=== PATIENT | male | born 1945 | race Caucasian/White ===

== ENCOUNTER 2023-11-08 10:54 | Emergency (ER) | payer MEDICARE, BC, SELFPAY ==
[2023-11-08 11:03] VITALS: BP 126/81; PULSE 102; RESP 18; TEMP 36.7; O2SAT 95
--- NOTE | 2023-11-08 11:13 | ED.GENADULT ---
HPI - General Adult General Chief complaint: Back Injury/Pain Stated complaint: back pain Time Seen by Provider: 11/08/23 11:03 History of Present Illness HPI narrative: Patient reports low back pain x 2-3 days. Has tried icy hot, tylenol without relief. Hx back pain/ surgery per patient. Hx stroke, difficulty with word finding. helps provide history . Lives at [facility]. 78-year-old man presenting to the emergency depart with concern of back pain. Unclear exactly how long this has been going on per my interview. Interview is limited by cognitive difficulties from stroke and presumed dementia. Spouse attends as well but also with limited information. Resident of [facility]. It appears that this pain is been going on it least worse over the last couple of days. Acetaminophen taken without relief per spousal report. Need to review med list from facility. Does have history of chronic low back pain but it sounds to have improved markedly since a low back surgical procedure. This was remote and I am unsure what that was exactly. He does have on exam low lumbar well-healed surgical incision. They do report a history of a herniated disc once upon a time. He is not describing symptoms into his legs but noted him to be shaky with his legs like Yohan when he goes to stand. It sounds as though this is more related to pain than to weakness otherwise. They report no falls recently. Was assisted by nursing to transition out of wheelchair apparently. Urinalysis had initially been requested upon triage. Unable to urinate apparently. Bladder scan was also done prior to my seeing Mr. Osborn and noted to have only 20 mL or so remaining. Related Data Home Medications ?Medication ?Instructions ?Recorded ?Confirmed acetaminophen 500 mg capsule 500 mg PO TID 11/08/23 11/08/23 allopurinol 100 mg tablet 100 mg PO DAILY 11/08/23 11/08/23 amlodipine 5 mg tablet 5 mg PO DAILY 11/08/23 11/08/23 amoxicillin 500 mg tablet 500 mg PO ONCE PRN 11/08/23 11/08/23 apixaban 5 mg tablet (Eliquis) 5 mg PO BID 11/08/23 11/08/23 aspirin 81 mg capsule 81 mg PO DAILY 11/08/23 11/08/23 bacitracin 500 unit/gram topical 1 applic topical Q12H 11/08/23 11/08/23 packet camphor-menthol 0.2 %-3.5 % 1 applic topical TID 11/08/23 11/08/23 topical gel (Arctic Relief) chlorthalidone 25 mg tablet 25 mg PO DAILY 11/08/23 11/08/23 finasteride 5 mg tablet 5 mg PO DAILY 11/08/23 11/08/23 levetiracetam 1,000 mg tablet 1,000 mg PO DAILY 11/08/23 11/08/23 levetiracetam 500 mg tablet 500 mg PO HS 11/08/23 11/08/23 lisinopril 40 mg tablet 40 mg PO DAILY 11/08/23 11/08/23 metoprolol succinate 50 mg 50 mg PO DAILY 11/08/23 11/08/23 tablet,extended release 24 hr nystatin 100,000 unit/gram topical 1 applic topical BID 11/08/23 11/08/23 cream simvastatin 10 mg tablet 10 mg PO QPM 11/08/23 11/08/23 tamsulosin 0.4 mg capsule 0.4 mg PO DAILY 11/08/23 11/08/23 Allergies Allergy/AdvReac Type Severity Reaction Status Date / Time No Known Drug Allergies Allergy Verified 11/08/23 11:03 Review of Systems Status of ROS: Reports: 6 or more systems reviewed and unremarkable except as noted in History and below [facility] Social History Smoking Status: Unknown if ever smoked Exam Narrative: Exam Narrative: Pleasant. NAD. Flatter affect. Primarily answering yes and no to questions. Slightly affected speech apparently not new. Skin is warm and dry. Low midline surgical incision well healed in the lumbar spine. There is reproducible tenderness in in surrounding the left sacroiliac joint. Right is without tenderness. He has exacerbation of pain in his back to straight leg raise bilaterally I would say left greater than right but in both cases reaches to grab the knee as he complains of apparent back pain. Denies radicular symptoms into his legs in this process though. Skin is without back abdominal or lower extremity bruising or erythema or swelling. He is wearing Attends. Does not have pain to flexion or rotation of his thigh/hips. There is no pain to palpation over the trochanters femurs or knees. I do not appreciate any effusion. Heart is in an elevated rate. Breathing easily. Const: Vital Signs, click to edit/add: Vital Signs - 24 hr 11/08/23 11:03 Temperature 98.1 F Pulse Rate [Pulse Oximeter] 102 H Respiratory Rate 18 Blood Pressure [Ri ght Upper Arm] 126/81 Pulse Oximetry 95 Oxygen Delivery Me thod Room Air Documenting provider has reviewed patient's vital signs: yes Course Vital Signs Vital signs: Initial Vital Signs Temperature 98.1 F 11/08/23 11:03 Temperature Source Temporal Artery Scan 11/08/23 11:03 Pulse Rate 102 H 11/08/23 11:03 Respiratory Rate 18 11/08/23 11:03 Blood Pressure 126/81 11/08/23 11:03 Blood Pressure Mean 96 11/08/23 11:03 Blood Pressure Position Sitting 11/08/23 11:03 Pulse Oximetry 95 11/08/23 11:03 Oxygen Delivery Method Room Air 11/08/23 11:03 Vital Signs Temperature 98.1 F 11/08/23 11:03 Pulse Rate 102 H 11/08/23 11:03 Respiratory Rate 18 11/08/23 11:03 Blood Pressure 126/81 11/08/23 11:03 Pulse Oximetry 95 11/08/23 11:03 Oxygen Delivery Method Room Air 11/08/23 11:03 Temperature 98.1 F 11/08/23 11:03 Pulse Rate 102 H 11/08/23 11:03 Respiratory Rate 18 11/08/23 11:03 Blood Pressure 126/81 11/08/23 11:03 Pulse Oximetry 95 11/08/23 11:03 Oxygen Delivery Method Room Air 11/08/23 11:03 Medications Administered Medications: Discontinued Medications Generic Name Dose Route Start Last Admin Trade Name Freq PRN Reason Stop Dose Admin Hydrocodone Bitart/Acetaminophen 2 tab 11/08/23 11:24 11/08/23 11:32 Hydrocodone-Acetamin 5-325 Mg 1 Tab PO 11/08/23 11:25 2 tab ONCE ONE Administration Lidocaine 1 patch 11/08/23 11:24 11/08/23 11:31 Lidocaine 5% Patch TRANSDERMA 11/08/23 11:25 1 patch ONCE ONE Administration Protocol Medical Decision Making MDM Narrative Medical decision making narrative: History of chronic back pain as reported. Appears to have pain consistent with the left sacroiliac joint. There has been no new injury per report. I am not sure that new imaging would be beneficial right now. He does not clearly have radicular symptoms either. At this point would try to control the pain. Would like to know if he can tolerate 2 tabs of [place] along with placement of a lidocaine patch over the left sacroiliac joint. With treatment as above ultimately is improved. Is not excessively sedated. Unable to be mobilized more easily. See patient discharge plan for further discussion Medical Records Medical records reviewed: Yes I reviewed the patient's medical records Discharge Plan Discharge Clinical Impression: Sacroiliac joint pain, Low back pain Patient Disposition: Home w/ Parent or Adult Condition: Improved Additional Instructions: If this lidocaine patch is helpful, you can purchase more [id number]. See handout on sacroiliac joint pain. I do not expect you to be able to do all these exercises but these stretches might be beneficial. Particularly the right knee to chest while you are lying in bed. Also small quantity of [place] from [facility]. Remember that this can be sedating and constipating. On the days you need to take this medication, on the same day I would take 1-2 tabs of senna to keep bowels moving. Please follow-up with primary care provider regarding this pain and further care which may include physical therapy. Prescriptions: No Action amlodipine 5 mg tablet 5 mg PO DAILY allopurinol 100 mg tablet 100 mg PO DAILY acetaminophen 500 mg capsule 500 mg PO TID amoxicillin 500 mg tablet 500 mg PO ONCE PRN Rx Instructions: prior to dental procedures aspirin 81 mg capsule 81 mg PO DAILY chlorthalidone 25 mg tablet 25 mg PO DAILY Eliquis 5 mg tablet 5 mg PO BID Arctic Relief 0.2-3.5 % gel 1 applic topical TID Rx Instructions: rub in gently and completely bacitracin 500 unit/gram packet 1 applic topical Q12H Rx Instructions: to nailbed of left third digit levetiracetam 500 mg tablet 500 mg PO HS finasteride 5 mg tablet 5 mg PO DAILY levetiracetam 1,000 mg tablet 1,000 mg PO DAILY metoprolol succinate 50 mg tablet extended release 24 hr 50 mg PO DAILY simvastatin 10 mg tablet 10 mg PO QPM tamsulosin 0.4 mg capsule 0.4 mg PO DAILY nystatin 100,000 unit/gram cream 1 applic topical BID lisinopril 40 mg tablet 40 mg PO DAILY Follow Up/Referrals: Provider,Not a Local [Primary Care Provider] - Stand Alone Forms: [employer] Info Instructions
[2023-11-08] MEDS: LIDOCAINE 5% PATCH 1 PATCH TRANSDERMA (11:31)
[2023-11-08] MEDS: HYDROCODONE-ACETAMIN 5-325 MG 1 TAB 2 TAB PO (11:32)
--- OUTSIDE RECORDS SUMMARY | 2023-11-08 11:48 | XMS_ITS | Continuity of Care Document ---
Author Organization [facility] Address [address] [place] [address] Phone Care Team Providers Care Librarian Special Collections Name Role Phone Rickey Carreno Unavailable Unavailable Allergies, Adverse Reactions, Alerts Substance Reaction Status Criticality No Known Allergies Active No Inform ation Medications Medication Instructions Dosage Effective Dates (start - stop) Status Comments ALLOPURINOL (unknown strength) Not Available - Active AMOXICILLIN (unknown strength) Not Available - Active ASPIRIN (unknown strength) Not Available - Active DILTIAZEM 12HR ER (unknown strength) Not Available - Active FINASTERIDE (unknown strength) Not Available - Active KEPPRA (unknown strength) Not Available - Active LISINOPRIL (unknown strength) Not Available - Active SIMVASTATIN (unknown strength) Not Available - Active METOPROLOL SUCCINATE (unknown strength) Not Available - Active WARFARIN SODIUM (unknown strength) Not Available - Active Procedures Procedure Date Office/Outpatient Visit,Est, Mod 2018 Office/Outpatient Visit,Est, Mod 2018 Office/Outpatient Visit,New, Mod 2018 Advance Directives Directive Yes / No Effective Date File Name No Information Encounters Encounter Description Practice Location Reason(s) For Visit Diagnoses Date Provider Providers Copied on Encounter Office/Outpat ient Visit,Est, Mod [facility], [address], [place], [id number], [place] tel:[phone] [facility] [place] Other spondylosis , lumbar region Meek Lang. [facility], [address], [place], [id number], [place]. tel:[phone] Referring Provider: Neymar Michaels, [facility] [address] [facility], [place], [address]. tel:[phone] Office/Outpat ient Visit,Est, Mod [facility], [address], [facility] [place], [place], [id number], [place] tel:[phone] [facility] [place] Other spondylosis , lumbar region Meek Lang. [facility], [address], [place], [place], [id number], [place]. tel:[phone] Referring Provider: Neymar Michaels, [facility] [address], [place], [address]. tel:[phone] Office/Outpat ient Visit,New, Mod [facility], [address], [place], [place], [id number], [place] tel:[phone] [facility] [place] Other spondylosis , lumbar region Meek Lang. [facility], [address], [place], [place], [id number], [place]. tel:[phone] Referring Provider: Neymar Michaels, [facility] [address] [facility] [address], [place], [address]. tel:[phone] [facility], [address], [facility] [place], [place], [id number], [place] tel:[phone] [facility] Low back pain Eddie Anderson. [facility], [address], [facility] [place], [address], [place]. tel:[phone] Family History Family Member Type Diagnosis Age At Onset No Information Payers Payer name Insurance type Covered libertarian ID Sal king(s) Medicare MB [id number] [facility] Federal [id number] Social History Type Description Quantity Date Captured Comments Alcohol Use Details Unknown Caffeine Use Details Unknown Tobacco Use Status Smoking Status Former smoker Non-Smoking Tobacco Use Details : No Details Available : No Details Available Sex Male Vital Signs Date / Time: Height Weight BMI Pulse Rate Blood Pressure Temperature Respiratory Rate Body Surface Area Head Circumference Head Circ. Percentile Wt./Elan. Percentile BMI percentile Pulse Ox Inhaled Ox 2:59 PM 176.28 cm 131.088 kg (289.00 lbs) 42.1 8 kg/m eter (2) 70 /min 131/80 mm[Hg] Chief Complaint And Reason For Visit No Information Reason For Referral Reason For Referral No Information History Of Present Illness Encounter Date Complaint History Of Prese nt Illness No Information Functional Status Date Functional Assessmen t No Information Instructions Date Instruction Additional Infor mation No Information Assessments Type Assessment Date assessment Other spondylosis, lumbar region Patient Care Teams Name Effective Dates (start - stop) Status Members No Information
--- OUTSIDE RECORDS SUMMARY | 2023-11-08 11:48 | XMS_ITS | Clinical Summary ---
Author Organization [facility] Address [place], [place] [address] Care Team Providers Care Atomic Welder Name Role Phone Trevon Durán Jossue Unavailable [phone] Amador Deluca DPM Unavailable [phone] Fidel Melo MD Unavailable [phone] Steven Barnhart MD Unavailable Unavaila ble Allen Vergara MD Unavailable [phone] Juan Bañuelos MD Unavailable [phone] Joann Oconnell NP Primary Care Provider [phone] Allergies Active Allergy Reactions Criticality Noted Date Comments Homeopathic Products Runny Nose 03/29/2009 hayfever Medications Medication Sig Dispensed Refills Start Date End Date Status amoxicillin (AMOXIL) 500 mg capsule Take 2,000 mg by mouth one time if needed (prior to dental procedures). 01/10/2014 Active simvastatin (ZOCOR) 10 mg tabletIndications: Cerebrovascular accident (CVA), unspecified mechanism (HC) Take 1 Tablet (10 mg) by mouth at bedtime. 90 tablet. 3 03/13/2021 Active allopurinoL (ZYLOPRIM) 100 mg tabletIndications: Chronic gout without tophus, unspecified cause, unspecified site Take 1 Tablet (100 mg) by mouth once daily. 90 Tablet 3 03/13/2021 Active lisinopriL (PRINIVIL; ZESTRIL) 40 mg tabletIndications: Stage 3a chronic kidney disease (HC) Take 1 Tablet (40 mg) by mouth once daily. 90 Tablet 3 03/13/2021 Active finasteride (PROSCAR) 5 mg tabletIndications: Benign prostatic hyperplasia TAKE ONE TABLET BY MOUTH EVERY DAY IN THE MORNING 90 Tablet 3 07/29/2021 Active tamsulosin (FLOMAX) 0.4 mg capsuleIndications :Benign prostatic hyperplasia, unspecified whether lower urinary tract symptoms present Take 1 Capsule (0.4 mg) by mouth once daily after a meal. 90 Capsule 07/31/2021 Active acetaminophen (TYLENOL EXTRA STRGTH) 500 mg tablet Take 1,000 mg by mouth three times daily. Max acetaminophen dose: 4000mg in 24 hrs. Active aspirin (ECOTRIN) 81 mg enteric coated tablet Take 81 mg by mouth once daily with a meal. Active apixaban (ELIQUIS) 5 mg tablet Take 5 mg by mouth two times daily. Active levETIRAcetam (KEPPRA) 1,000 mg tablet Take 1,000 mg by mouth every morning. Active levETIRAcetam (KEPPRA) 500 mg tablet Take 500 mg by mouth at bedtime. Active amLODIPine (NORVASC) 5 mg tablet Take 5 mg by mouth once daily. Active chlorthalidone (HYGROTON) 25 mg tablet Take 25 mg by mouth once daily. Active nystatin (MYCOSTATIN) 100,000 unit/gram topical cream Apply to red skin topically two times a day. Apply until healed. Active metoprolol tartrate 75 mg tab Take by mouth. Give 1 tablet (75 mg) by mouth once daily Active menthol 4% (Biofreeze, menthol,) topical gel Apply to lower back topically three times a day for lower back pain. Active bacitracin ointment Apply to nailbed of left third digit topically two times daily Active Active Problems Problem Noted Date Diagnosed Date Dizziness 09/20/2023 Generalized weakness 09/20/2023 AASHISH (acute kidney injury) 09/20/2023 Pneumonia 07/19/2023 Generalized weakness 07/19/2023 AV heart block 02/14/2022 Sick sinus syndrome 02/14/2022 Mixed hyperlipidemia 02/13/2022 Seizure disorder 02/13/2022 BPH with obstruction/lower urinary tract symptom s 02/13/2022 Chronic atrial fibrillation 02/13/2022 Fall 02/12/2022 Renal cell carcinoma of left kidney 07/13/2021 Generalized weakness 12/26/2019 Hemorrhoids, internal 01/16/2018 Lumbar spondylosis 03/24/2017 Hip pain, left 09/13/2016 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 MOHS 04/2016 Hyperlipidemia 05/04/2016 Morbid obesity due to excess calories 09/24/2015 Chronic gout without tophus 03/25/2015 CKD (chronic kidney disease) stage 3, GFR 30-59 ml/min 05/22/2014 Overview: Baseline creatinine 1.25-1.5. BPH (benign prostatic hyperplasia) 2014 Seizure 11/23/2012 Overview: Saw neurology on 11/14/12. Paroxysmal atrial fibrillation 04/17/2009 Cerebrovascular accident (CV A) due to occlusion of left middle cerebral artery 04/17/2009 Global aphasia 04/17/2009 Hypertension 04/06/2006 Backache, unspecified 04/06/2006 History of colon polyps Resolved Problems Problem Noted Date Diagnosed Date Resolved Date Benign essential HTN 02/13/2022 024 Enteritis due to Norovirus 07/06/2021 0 02/12/2022 Influenza A 06/11/2017 09/14/2017 Muscle ache of extremity 06/10/201711/2017 Bacteremia 06/10/2017 02/12/2022 Other fatigue 06/10/2017 06/11/2017 Permanent atrial fibrillation 05/04/2016 02/12/2022 Seizures 05/04/2016 06/11/2017 Overview: 11/03/2012 last seizure Sepsis 05/03/2016 06/11/2017 Refused influenza vaccine 05/26/2015 Benign prostatic hyperplasia with urinary obstruction 09/25/2014 06/11/2017 Anticoagulation monitoring, INR range 2-3 08/02/2012 09/25/2021 Routine health maintenance 06/28/2012 0 06/11/2017 Gout, unspecified 03/31/2009 06/11/2017 Arthropathy associated with other bacterial diseases, pelvic region and thigh 04/06/20062016 Encounters Date Type Department Care Team Description 09/20/2023 12:04 PM CDT - 09/21/2023 1:15 PM CDT Emergency [facility] [address] [place] [address] Ofelia Bustamante, Antolin Tiwari MD Lapham, Renae Ann, Raul Morfin, Sana Perez NP Dizziness (Primary Dx); Generalized weakness; Renal cell carcinoma of left kidney (HC) Discharge Disposition: Home Health 09/20/2023 Travel from Last 3 Months Immunizations Name Administration Dates Next Due COVID-19 vaccine (i-Neumaticos-Bio NTech 30mcg/0.3mL) 12YO+ GAURANG-SUCROSE PF, MDV 07/06/2021(Deferred: - Readdress in AM) COVID-19 vaccine (i-Neumaticos-Bio NTech 30mcg/0.3mL) PF, MDV 03/16/2021,08/19/2020,07/29/2020 Influenza, High-dose Quadriv alent Inactivated 03/16/2021 Influenza, IIV4 2014 Influenza, Inactivated AIIV4 (Age 65+ Years) Preserv Free 03/27/2020 Pneumococcal Poly,23-Valent (Pneumovax) 2014 Pneumococcal conj 13-Valent (Prevnar 13) 05/26/2015 Td (Age >=7 Years) 05/25/2002 Tdap 06/03/2014 Family History Medical History Relation Name Comments Cancer Father skin Psychiatric illness Mother depressi on Diabetes Sister 4 Hypertension Sister 5 Hypertension Sister 6 Relation Name Status Comments Father (Age 82) 2003 Mother Alive Sister 1 Alive Sister 2 Alive Sister 3 Alive Sister 4 Sister 5 Sister 6 Social History Tobacco Use Types Packs/Day Years Used Date Smoking Tobacco: Former Cigarettes 0.5 5 0 06/06/1968 - 06/06/1973 Pipe Smokeless Tobacco: Never Tobacco Cessation:Counseling Given: Yes Comments:smoked less than 1ppd for 5 years including pipes and cigars Alcohol Use Standard Drinks/Week Comments No 0 (1 standard drink = 0.6 oz pur e alcohol) PHQ-2 Answer Date Recorded PHQ-2 TOTAL SCORE 0 09/12/2020 Social Connections Answer Date Recorded Frequency of Communication with Friends and Fami ly 0 07/20/2023 Financial Resource Strain Answer Date R ecorded Difficulty of Paying Living Expenses 3 09/21/2023 Difficulty of Paying Living Expenses Not on file 09/21/2023 Food Insecurity Answer Date Recorded Worried About Running Out of Food in the Last Ye ar 1 07/20/2023 Transportation Needs Answer Date Record ed Lack of Transportation (Medical) 1 07/20/2023 Housing Stability Answer Date Recorded Unable to Pay for Housing in the Last Year 1 07/20/2023 Sex and Gender Information Value Date Recorded Sex Assigned at Not on file Gender Identity Not on file Sexual Orientation Not on file Obstetrics History Last Filed Vital Signs Vital Sign Reading Time Taken Comments Blood Pressure 161/74 09/21/2023 9:01 AM CDT Pulse 72 09/21/2023 9:01 AM CDT Temperature 36.5 ??C (97.7 ??F) 09/21/2023 9:23 AM CD T Respiratory Rate 16 09/21/2023 9:01 AM CDT Oxygen Saturation 96% 09/21/2023 9:01 AM CDT Inhaled Oxygen Concentration - - Weight 123.4 kg (272 lb) 09/21/2023 4:36 AM CDT Height 180.3 cm (5' 11) 09/20/2023 12:08 PM CDT Body Mass Index 37.94 09/20/2023 12:08 PM CDT Plan of Treatment Health Maintenance Due Date Last Done Comments Zoster (shingles) series for age 50+ (1 of 2) 1966 Depression screening for age 12+ 09/12/2021 09/12/2020, 03/27/2020, 03/27/2020, Additional history exists Medicare Wellness for age 65+ 09/13/2021, 03/27/2020, 03/26/2019, Additional history exists BMI (ht and wt on same day) for age 18+ 07/13/2022 07/13/2021, 03/27/2020, 02/20/2020, Additional history exists COVID-19 vaccine series ( season) 2023 03/16/2021, 08/19/2020, 07/29/2020 Influenza for age 65+ 02/05/2024 03/16/2021 , 03/27/2020, 2014 Tetanus booster 06/03/2024 06/03/2014, 05/25/2002 Tdap Completed 06/03/2014 Pneumococcal series for age 65+ Completed 5, 2014 Hepatitis C screening for ag e 18-79 Completed 03/26/2019 Goals Goal Patient Goal Type Associated Problems Recent Progress Patient-Stated? Author BLOOD PRESSURE-MA INTAINS BP LESS THAN 130/80 Blood Pressure No Latanya Snell, DO Procedures Procedure Name Priority Date/Time Associated Diagnosis Comments MAGNESIUM Early AM 09/21/2023 5:40 AM CDT HEMOGLOBIN Early AM 09/21/2023 5:40 AM CDT SODIUM Early AM 09/21/2023 5:40 AM CDT POTASSIUM Early AM 09/21/2023 5:40 AM CDT CREATININE Early AM 09/21/2023 5:40 AM CDT INFLUENZA A/B PCR Today 09/20/2023 5:5 7 PM CDT MAGNESIUM ALON 09/20/2023 2:39 PM CDT TROPONIN T (HS) ONE TIME Timed 09/20/2023 2:39 PM CDT UA W/ SEDIMENT EXAM REFLEXED PER CRITERIA STAT 09/20/2023 2:[address] ANGIO HEAD AND NECK CAROTID STAT 09/20/2023 1:[address] HEAD BRAIN WO STAT 09/20/2023 1:29 PM CDT XR CHEST 1 VIEW PORTABLE STAT 09/20/2023 12:34 PM CDT BLOOD CULTURE STAT 09/20/2023 12:28 PM CDT CBC WITH AUTO DIFFERENTIAL STAT 09/20/2023 12:23 PM CDT PROCALCITONIN STAT 09/20/2023 12:23 PM CDT LACTATE VENOUS Today 09/20/2023 12:23 PM CDT BLOOD CULTURE STAT 09/20/2023 12:23 PM CDT TSH STAT 09/20/2023 12:23 PM CDT TROPONIN T (HS) ACUTE W/2HR REFLEX STAT 09/20/2023 12:23 PM CDT HEPATIC FUNCTION PANEL STAT 12:23 PM CDT BASIC METABOLIC PANEL STAT 09/20/2023 12:23 PM CDT PROTIME-INR STAT 09/20/2023 12:23 PM CDT CBC WITH AUTO DIFFERENTIAL STAT 09/20/2023 12:23 PM CDT EKG 12 LEAD STAT 09/20/2023 12:20 PM CDT ANTI HCV Routine 03/26/2019 4:11 PM CDT Need for hepatitis C screening test from Last 3 Months or Most Recently Relevant to Health Maintenance Results * HEMOGLOBIN (09/21/2023 5:40 AM CDT) HEMOGLOBIN 13.7 13.5 - 17.5 g/dL 09/21/2023 6:30 AM CDT [facility] MCV 93 80 - 100 fL 09/21/2023 6:30 AM CDT [facility] Blood BLOOD SPECIMEN / Unknown Venipuncture / Unknown 09/21/2023 5:40 AM CDT 09/21/2023 6:16 AM CDT Padmini Buck NP HEMATOLOGY [facility] [address] [place] [address] * SODIUM (09/21/2023 5:40 AM CDT) [facility] SODIUM 139 136 - 145 mmol/L 09/21/2023 6:40 AM CDT [facility] Blood BLOOD SPECIMEN / Unknown Venipuncture / Unknown 09/21/2023 5:40 AM CDT 09/21/2023 6:16 AM CDT Padmini Buck NP CHEMISTRY [facility] [address] [place] [address] * POTASSIUM (09/21/2023 5:40 AM CDT) [facility] POTASSIUM 4.3 3.5 - 5.1 mmol/L 09/21/2023 6:40 AM CDT [facility] Blood BLOOD SPECIMEN / Unknown Venipuncture / Unknown 09/21/2023 5:40 AM CDT 09/21/2023 6:16 AM CDT Padmini Buck NP CHEMISTRY Performing Organization Address City/[facility]/ZIP Co de Phone Number [facility] [address] [place] [address] * (ABNORMAL) CREATININE (09/21/2023 5:40 AM CDT) [facility] eGFR 63(L) >90 mL/min/1.7 3m2 09/21/2023 6:40 AM CDT [facility] Comment:As of 2021, eG FR is calculated by the CKD-EPI creatinine equation without race adjustment. ??eGFR can be influenced by muscle mass, exercise, and diet. ??The reported eGFR is an estimation only and is only applicable if the renal function is stable. CREATININE 1.20 0.70 - 1.20 mg/dL 09/21/2023 6:40 AM CDT [facility] Blood BLOOD SPECIMEN / Unknown Venipuncture / Unknown 09/21/2023 5:40 AM CDT 09/21/2023 6:16 AM CDT Padmini Buck NP CHEMISTRY Performing Organization Address [facility]/ZIP Co de Phone Number [facility] [address] [place] [address] * MAGNESIUM (09/21/2023 5:40 AM CDT) Only the most recent of2 resultswithin the time period is included. [facility] MAGNESIUM 2.1 1.6 - 2.4 mg/dL 09/21/2023 6:40 AM CDT [facility] Blood BLOOD SPECIMEN / Unknown Venipuncture / Unknown 09/21/2023 5:40 AM CDT 09/21/2023 6:16 AM CDT Padmini Buck NP CHEMISTRY Performing Organization Address [facility] Co de Phone Number [facility] [address] [place] [address] * INFLUENZA A/B PCR (09/20/2023 5:57 PM CDT) [facility] INFLUENZA A PCR NOT Detected 09/20/2023 6:25 PM CDT [facility] INFLUENZA B PCR NOT Detected 09/20/2023 6:25 PM CDT [facility] Other SPECIMEN FROM NASOPHARYNGEAL STRUCTURE / Unknown Non-Blood / Unknown 09/20/2023 5:57 PM CDT 09/20/2023 6:00 PM CDT Padmini Buck NP MICROBIOLOGY Performing Organization Address [facility]/ZIP Co de Phone Number [facility] [address] [place] [address] * (ABNORMAL) TROPONIN T (HS) ONE TIME (09/20/2023 2:39 PM CDT) [facility] TROPONIN T HS 32(H) 6-15 ng/L ng/L 09/20/2023 3:17 PM T [facility] Blood BLOOD SPECIMEN / Unknown Venipuncture / Unknown 09/20/2023 2:39 PM CDT 09/20/2023 2:48 PM CDT Ofelia Bustamante SERVICE CLEANER CHEMISTRY [facility] [address] [place] [address] * Urinalysis w Reflex Microscopic if Positive (09/20/2023 2:15 PM CDT) COLOR Yellow Yellow Color 09/20/2023 2:22 PM [facility] CLARITY Clear Clear Clarity 09/20/2023 2:22 PM [facility] SPECIFIC GRAVITY,URINE 1.010 1.010, 1.015, 1.020, 1.025 09/20/2023 2:22 PM [facility] PH,URINE 5.5 6.0, 7.0, 8.0, 5.5, 6.5, 7.5, 8.5 09/20/2023 2:22 PM [facility] UROBILINOGEN, QUALITATIVE Normal Normal EU/dl 09/20/2023 2:22 PM [facility] PROTEIN, URINE Negative Negative mg/dL 09/20/2023 2:22 PM [facility] GLUCOSE, URINE Negative Negative mg/dL 09/20/2023 2:22 PM [facility] KETONES,URINE Negative Negative mg/dL 09/20/2023 2:22 PM [facility] BILIRUBIN,URI NE Negative Negative 09/20/2023 2:22 PM [facility] OCCULT BLOOD,URINE Negative Negative 09/20/2023 2:22 PM [facility] NITRITE Negative Negative 09/20/2023 2:22 PM [facility] LEUKOCYTE ESTERASE Negative Negative 09/20/2023 2:22 PM [facility] Urine URINE SPECIMEN / Unknown Non-Blood / Unknown 09/20/2023 2:15 PM CDT 09/20/2023 2:18 PM CDT Ofelia Bustamante NP URINE [facility] [address] [place] [address] * CT ANGIO HEAD AND NECK CAROTID (09/20/2023 1:31 PM CDT) Anatomical Region Laterality Modality BRAIN, NECK Computed Tomogra phy 09/20/2023 1:35 PM CDT Addenda Addendum by Maggie Ernandez MD on 09/20/2023 1:37 PM CDT For Patients: ??As a result of the Cures Act, medical imaging exams and procedure reports are released immediately into your electronic medical record. ??You may view this report before your referring provider. ?? If you have questions, please contact your health care provider. CT ANGIOGRAM HEAD DATE: 09/20/2023 CLINICAL HISTORY: Patient with dizziness. TECHNIQUE: Standard helical CT image acquisition through the intracranial circulation following intravenous administration of contrast material with bolus tracking. 2D and 3D MIP images for post-processing were performed and interpreted on an independent workstation and 3D images were permanently archived. COMPARISON: CT same day. FINDINGS: There is no proximal intracranial large vessel occlusion. There is no intracranial aneurysm. The right internal carotid artery is normal. The right middle cerebral artery and its branches are normal. The right anterior cerebral artery and its branches are normal. The left internal carotid artery is normal. The left middle cerebral artery and its branches are normal. The left anterior cerebral artery and its branches are normal. The anterior communicating artery is well visualized and appears normal. The right vertebral artery and PICA are normal. The left vertebral artery and PICA are normal. The right vertebral artery is dominant. The basilar artery is patent and appears normal. The right posterior cerebral artery is normal. The left posterior cerebral artery is normal. The visualized venous structures are patent. IMPRESSION: Patent proximal intracranial vasculature. Please note that all CT scans at this facility use dose modulation, iterative reconstruction, and/or weight-based dosing when appropriate to reduce radiation dose to as low as reasonably achievable. Dictated by: Maggie Ernandez MD @ 09/20/2023 13:37:47 (Electronically Signed) Impressions 09/20/2023 1:35 PM CDT Normal CTA of the neck. Please note that all CT scans at this facility use dose modulation, iterative reconstruction, and/or weight-based dosing when appropriate to reduce radiation dose to as low as reasonably achievable. Dictated by: Maggie Ernandez MD @ 09/20/2023 13:35:56 (Electronically Signed) Narrative 09/20/2023 1:35 PM CDT For Patients: ??As a result of the Cures Act, medical imaging exams and procedure reports are released immediately into your electronic medical record. ??You may view this report before your referring provider. ??If you have questions, please contact your health care provider. CT ANGIOGRAM NECK DATE: 09/20/2023 CLINICAL HISTORY: Patient with dizziness. TECHNIQUE: Standard helical CT image acquisition of the neck up to the skull base after bolus intravenous contrast enhancement. 2D and 3D MIP images for post-processing were performed and interpreted on an independent workstation and 3D images were permanently archived. COMPARISON: CT same day. FINDINGS: The origins of the great vessels from the aortic arch are patent. The origin of the right vertebral artery is patent. The origin of the left vertebral artery is patent. The common carotid arteries are patent. There is no stenosis at the origin of the right internal carotid artery. There is no stenosis at the origin of the left internal carotid artery. The rest of the cervical segments of the internal carotid arteries are patent up to the skull base. The right vertebral artery is dominant. The cervical segments of the vertebral arteries are patent up to the skull base. The visualized lung apices are unremarkable. The thyroid gland is unremarkable. The soft tissues of the neck are unremarkable. There are degenerative changes in the cervical spine. Procedure Note Maggie Ernandez MD - 09/20/2023 For Patients: As a result of the Cures Act, medical imagingexams and procedure reports are released immediately into your electronicmedical record. You may view this report before your referring provider.If you have questions, please contact your health care provider. CT ANGIOGRAM NECK DATE: 09/20/2023 CLINICAL HISTORY: Patient with dizziness. TECHNIQUE: Standard helical CT image acquisition of the neck up to theskull base after bolus intravenous contrast enhancement. 2D and 3D MIPimages for post- processing were performed and interpreted on anindependent workstation and 3D images were permanently archived. COMPARISON: CT same day. FINDINGS: The origins of the great vessels from the aortic arch are patent. Theorigin of the right vertebral artery is patent. The origin of the leftvertebral artery is patent. The common carotid arteries are patent. There is no stenosis at the origin of the right internal carotid artery. There is no stenosis at the origin of the left internal carotid artery. The rest of the cervical segments of the internal carotid arteries arepatent up to the skull base. The right vertebral artery is dominant. The cervical segments of thevertebral arteries are patent up to the skull base. The visualized lung apices are unremarkable. The thyroid gland is unremarkable. The soft tissues of the neck are unremarkable. There are degenerative changes in the cervical spine. IMPRESSION: Normal CTA of the neck. Please note that all CT scans at this facility use dose modulation,iterative reconstruction, and/or weight-based dosing when appropriate toreduce radiation dose to as low as reasonably achievable. Dictated by: Maggie Ernandez MD @ 09/20/2023 13:35:56 (Electronically Signed) Ofelia Bustamante NP CT * CT HEAD BRAIN WO (09/20/2023 1:29 PM CDT) Anatomical Region Laterality Modality HEAD, BRAIN Computed Tomogra phy 09/20/2023 1:39 PM CDT Impressions 09/20/2023 1:39 PM CDT 1. No acute intracranial abnormality. 2. Redemonstration of large area of left middle cerebral artery territory encephalomalacia. 3. Moderate mucosal thickening with mixed density debris in the right maxillary sinus with mild thickening of the surrounding bony felix. Findings may represent chronic sinusitis. Please note that all CT scans at this facility use dose modulation, iterative reconstruction, and/or weight-based dosing when appropriate to reduce radiation dose to as low as reasonably achievable. Dictated by Allen Patino MD @ 09/20/2023 1:39:17 PM (Electronically Signed) Narrative 09/20/2023 1:39 PM CDT For Patients: ??As a result of the Cures Act, medical imaging exams and procedure reports are released immediately into your electronic medical record. ??You may view this report before your referring provider. ??If you have questions, please contact your health care provider. INDICATION: Dizziness, persistent/recurrent, cardiac or vascular cause suspected TECHNIQUE: CT of the head was performed without IV contrast. COMPARISON: 07/19/2023, 02/28/2023. FINDINGS: Parenchyma: No acute hemorrhage, infarction, or mass. Mild scattered periventricular white matter hypoattenuation is nonspecific and is favored to represent chronic small vessel ischemic disease. ?? Redemonstration of large area of left middle cerebral artery territory encephalomalacia. Ventricles and extra-axial spaces: Moderate atrophy and prominence of the ventricles. Visualized paranasal sinuses: Moderate mucosal thickening with mixed density debris in the right maxillary sinus with mild thickening of the surrounding bony felix. Mastoid air cells: Clear. ?? Bones: No focal abnormality. ?? Additional comment: None. Procedure Note Franco Patino MD - 09/20/2023 For Patients: As a result of the Cures Act, medical imagingexams and procedure reports are released immediately into your electronicmedical record. You may view this report before your referring provider.If you have questions, please contact your health care provider. INDICATION: Dizziness, persistent/recurrent, cardiac or vascular cause suspected TECHNIQUE: CT of the head was performed without IV contrast. COMPARISON: 07/19/2023, 02/28/2023. FINDINGS: Parenchyma: No acute hemorrhage, infarction, or mass. Mild scattered periventricular white matter hypoattenuation is nonspecificand is favored to represent chronic small vessel ischemic disease. Redemonstration of large area of left middle cerebral artery territoryencephalomalacia. Ventricles and extra-axial spaces: Moderate atrophy and prominence of theventricles. Visualized paranasal sinuses: Moderate mucosal thickening with mixeddensity debris in the right maxillary sinus with mild thickening of thesurrounding bony felix. Mastoid air cells: Clear. Bones: No focal abnormality. Additional comment: None. IMPRESSION: 1. No acute intracranial abnormality. 2. Redemonstration of large area of left middle cerebral artery territoryencephalomalacia. 3. Moderate mucosal thickening with mixed density debris in the rightmaxillary sinus with mild thickening of the surrounding bony felix.Findings may represent chronic sinusitis. Please note that all CT scans at this facility use dose modulation,iterative reconstruction, and/or weight-based dosing when appropriate toreduce radiation dose to as low as reasonably achievable. Dictated by Allen Patino MD @ 09/20/2023 1:39:17 PM (Electronically Signed) Ofelia Marinelli Robby SERVICE CLEANER CT * XR CHEST 1 VIEW PORTABLE (09/20/2023 12:34 PM CDT) Anatomical Region Laterality Modality HEART, THORAX, CHEST Digital Rad iography 09/20/2023 12:3 7 PM CDT Impressions 09/20/2023 12:37 PM CDT No acute findings and no significant changes from the prior exam. Dictated by Channing Garcia MD @ 09/20/2023 12:37:27 PM (Electronically Signed) Narrative 09/20/2023 12:37 PM CDT For Patients: ??As a result of the Cures Act, medical imaging exams and procedure reports are released immediately into your electronic medical record. ??You may view this report before your referring provider. ??If you have questions, please contact your health care provider. INDICATION: Shortness of breath. TECHNIQUE: Chest 2 views. COMPARISON: July 19, 2023. FINDINGS: Cardiovascular and mediastinum: ??Heart size and vasculature are normal in caliber and appearance. ?? Lungs and pleural spaces: ??Lungs are clear. ??No sign of infiltrate or mass. ??No sign of pleural effusion. ??No pneumothorax. ?? Bones and soft tissues: ??No significant findings. Procedure Note Channing Garcia MD - 09/20/2023 For Patients: As a result of the Cures Act, medical imagingexams and procedure reports are released immediately into your electronicmedical record. You may view this report before your referring provider.If you have questions, please contact your health care provider. INDICATION: Shortness of breath. TECHNIQUE: Chest 2 views. COMPARISON: July 19, 2023. FINDINGS: Cardiovascular and mediastinum: Heart size and vasculature are normal incaliber and appearance. Lungs and pleural spaces: Lungs are clear. No sign of infiltrate ormass. No sign of pleural effusion. No pneumothorax. Bones and soft tissues: No significant findings. IMPRESSION: No acute findings and no significant changes from the prior exam. Dictated by Channing Garcia MD @ 09/20/2023 12:37:27 PM (Electronically Signed) Ofelia Bustamante NP GENERAL RISSA GING * BLOOD CULTURES (09/20/2023 12:28 PM CDT) Only the most recent of2 resultswithin the time period is included. CULTURE No Growth. 09/25/2023 12:54 PM CDT [facility] Blood BLOOD SPECIMEN / Unknown Butterfly / Unknown 09/20/2023 12:28 PM CDT 09/20/2023 12:32 PM CDT Ofelia Bustamante SERVICE CLEANER MICROBIOLOG Y [facility] [address] [place] [address] * (ABNORMAL) TROPONIN T (HS) ACUTE W/2HR REFLEX (09/20/2023 12:23 PM CDT) TROPONIN T HS 35(H) 6-15 ng/L ng/L 09/20/2023 1:09 PM CDT [facility] Blood BLOOD SPECIMEN / Unknown Butterfly / Unknown 09/20/2023 12:23 PM CDT 09/20/2023 12:31 PM CDT Narrative [facility] - 09/20/2023 1:09 PM CDT hs-cTnT (Elecsys Troponin T Gen 5) concentration (s) above the sex-specific 99th percentile (16 ng/L or greater for males or 11 ng/L or greater for females) are indicative of myocardial injury. If initial hs-cTnT <=100 ng/L at presentation, a 0h/2h ABSOLUTE (ng/L) delta change (rising or falling) of >=10 ng/L suggests a significant change, whereas a 0h/2h delta change <=3 ng/L suggests no significant change. If initial hs-cTnT >100 ng/L at presentation, a 0h/2h/ RELATIVE (percent, %) delta change of 20% is suggested to distinguish patients with acute vs. chronic myocardial injury. There are multiple etiologies that can cause hs-cTnT increases above the 99th percentile (myocardial injury) other than acute myocardial infarction. Clinical context and careful clinical evaluation are critical for diagnosis and risk-stratification. The diagnosis of acute myocardial infarction requires a rising and/or falling pattern in hs-cTnT concentrations with at least one value above the sex-specific 99th percentile PLUS at least one of the following clinical criteria: ischemic symptoms, new or presumed new significant ST-T wave changes or new LBBB, development of pathological Q waves, imaging evidence of new loss of viable myocardium or new regional wall motion abnormality, or identification of intracoronary atherothrombosis or an acute angiographic culprit on coronary angiography. In appropriate low-risk patients with a non-ischemic electrocardiogram without active chest pain with a symptom onset >3-hours without recurrence, a single initial hs-cTnT<6 ng/L identifies patient with a very low risk in emergency department patient population. Ofelia Bustamante NP CHEMISTRY [facility] [address] [place] [address] * CBC WITH AUTO DIFFERENTIAL (09/20/2023 12:23 PM CDT) WHITE BLOOD COUNT 6.5 4.5 - 11.0 thou/cu mm 09/20/2023 12:38 PM CDT [facility] RED BLOOD COUNT 4.79 4.30 - 5.90 mil/cu mm 09/20/2023 12:38 PM CDT [facility] HEMOGLOBIN 15.1 13.5 - 17.5 g/dL 09/20/2023 12:38 PM CDT [facility] HEMATOCRIT 44.8 37.0 - 53.0 % 09/20/2023 12:38 PM [facility] MCV 94 80 - 100 fL 09/20/2023 12:38 PM [facility] MCH 31.5 26.0 - 34.0 pg 09/20/2023 12:38 PM [facility] MCHC 33.7 32.0 - 36.0 g/dL 09/20/2023 12:38 PM [facility] RDW 13.7 11.5 - 15.5 % 09/20/2023 12:38 PM [facility] PLATELET COUNT 235 140 - 440 thou/cu mm 09/20/2023 12:38 PM [facility] MPV 10.0 6.5 - 11.0 fL 09/20/2023 12:38 PM [facility] % NEUT 74.4 % 09/20/2023 12:38 PM [facility] % LYMPH 16.5 % 09/20/2023 12:38 PM [facility] % MONO 7.2 % 09/20/2023 12:38 PM [facility] % EOS 1.7 % 09/20/2023 12:38 PM [facility] % BASO 0.2 % 09/20/2023 12:38 PM [facility] ABSOLUTE NEUTROPHILS 4.8 1.7 - 7.0 thou/cu mm 09/20/2023 12:38 PM [facility] ABSOLUTE LYMPHOCYTES 1.1 0.9 - 2.9 thou/cu mm 09/20/2023 12:38 PM [facility] ABSOLUTE MONOCYTES 0.5 <0.9 thou/cu mm 09/20/2023 12:38 PM [facility] ABSOLUTE EOSINOPHILS 0.1 <0.5 thou/cu mm 09/20/2023 12:38 PM [facility] ABSOLUTE BASOPHILS 0.0 <0.3 thou/cu mm 09/20/2023 12:38 PM [facility] Blood BLOOD SPECIMEN / Unknown Butterfly / Unknown 09/20/2023 12:23 PM CDT 09/20/2023 12:32 PM CDT Ofelia Bustamante NP HEMATOLOGY Performing Organization Address [facility]/ZIP Co de Phone Number [facility] [address] [place] [address] * LACTATE VENOUS (09/20/2023 12:23 PM CDT) LACTATE,VENOUS 2.0 0.5 - 2.0 mmol/L 09/20/2023 12:56 PM CDT [facility] Blood BLOOD SPECIMEN / Unknown Butterfly / Unknown 09/20/2023 12:23 PM CDT 09/20/2023 12:32 PM CDT Ofelia Bustamante NP CHEMISTRY Performing Organization Address [facility]/ZIP Co de Phone Number [facility] [address] [place] [address] * PROCALCITONIN (09/20/2023 12:23 PM CDT) [facility] PROCALCITONIN 0.07 ng/ml 09/20/2023 1:10 PM CDT [facility] Blood BLOOD SPECIMEN / Unknown Butterfly / Unknown 09/20/2023 12:23 PM CDT 09/20/2023 12:31 PM CDT Narrative [facility] - 09/20/2023 1:10 PM CDT Procalcitonin for initial assessment of Lower Respiratory Tract Infection: Results Interpretation <0.10 ng/mL Antibiotic therapy strongly discoraged. ??Indicates absent of bacterial infection. * 0.10 - 0.25 ng/mL Antibiotic therapy discouraged. ??Bacterial infection unlikely. * 0.26 - 0.50 ng/mL Antibiotic therapy encouraged. ??Bacterial infection possible. >0.50 ng/mL Antibiotic therapy strongly encouraged. ??Suggestive of presence of bacterial infection. *Antibiotic therapy should be considered regardless of PCT result if the patient is clinically unstable, is at high risk for adverse outcome, has strong evidence of bacterial pathogen, or the clinical context indicates antibiotic therapy is warranted. ??If antibiotics are withheld, reassess if symptoms persist/worsen and/or repeat PCT measurement within 6-24 hours. ? In order to assess treatment success and to support a decision to discontinue antibiotic therapy, follow up samples should be tested once every 1-2 days, based upon physician discretion taking into account patient's evolution and progress. Procalcitonin for initial assessment of severe sepsis risk: Results Interpretation <0.5 ng/ml A PCT level below 0.5 ng/ml on the first day of ICU admission is associated with a low risk for progression to severe sepsis and/or septic shock. > 2.0 ng/mL A PCT level above 2.0 ng/mL on the first day of ICU admission is associated with a high risk for progression to severe sepsis and/or septic shock. Note: Concentrations < 0.5 ng/mL do not exclude an infection, on account of localized infections (without systemic signs) which can be associated with such low concentrations, or a systemic infection in its initial stages(< 6 hours). Furthermore, increased procalcitonin can occur without infection. PCT concentrations between 0.5 and 2.0 ng/mL should be interpreted taking into account the patient's history. It is recommended to retest PCT within 6-24 hours if any concentrations < 2 ng/mL are obtained. Ofelia Bustamante SERVICE CLEANER SEND OUTS [facility] [address] [place] [address] * TSH (09/20/2023 12:23 PM CDT) TSH 1.43 0.27 - 4.20 uIU/mL 09/20/2023 1:09 PM CDT [facility] Blood BLOOD SPECIMEN / Unknown Butterfly / Unknown 09/20/2023 12:23 PM CDT 09/20/2023 12:31 PM CDT [facility] - 09/20/2023 1:09 PM CDT In Adults, TSH values between 5.00 and 10.00 uIU/ml do not necessarily indicate the presence of Hypothyroidism. Correlation with clinical findings such as presence of goiter and/or Thyroperoxidase (TPO) Antibody may be helpful. For more information please refer to ISREAL 2004; 291: 228-238. Ofelia Bustamante NP CHEMISTRY Performing Organization Address [facility] de Phone Number [facility] [address] [place] [address] * (ABNORMAL) Protime - INR (09/20/2023 12:23 PM CDT) [facility] Signature INR 1.5(H) <1.3 09/20/2023 12:40 PM CDT [facility] PROTIME 17.1(H) 10.3 - 12.3 sec 09/20/2023 12:40 PM CDT [facility] Blood BLOOD SPECIMEN / Unknown Butterfly / Unknown 09/20/2023 12:23 PM CDT 09/20/2023 12:31 PM CDT [facility] - 09/20/2023 12:40 PM CDT ?Therapeutic Range 2.0-3.0 for most anticoagulated patients 2.5-3.5 or 4.0 for high risk patients The INR is only used for patients on stable oral anticoagulant therapy. It makes no significant contribution to the diagnosis or treatment of patients whose Protime is prolonged for other reasons. INR results are increased when heparin levels exceed 1.0 U/mL, which corresponds to an aPTT >125 seconds if the patient is on UFH. Ofelia Bustamante NP HEMATOLOGY Performing Organization Address [facility] Co de Phone Number [facility] [address] [place] [address] * Hepatic Function Panel (09/20/2023 12:23 PM CDT) ALBUMIN 4.2 4.0 - 4.9 g/dL 09/20/2023 1:09 PM CDT [facility] PROTEIN,TOTAL 6.8 6.0 - 8.0 g/dL 09/20/2023 1:09 PM CDT [facility] BILIRUBIN,TOTAL 0.5 0.0 - 1.2 mg/dL 09/20/2023 1:09 PM T [facility] BILIRUBIN,DIRECT <0.2 0.0 - 0.3 mg/dL 09/20/2023 1:09 PM T [facility] BILIRUBIN,INDIRE CT 09/20/2023 1:09 PM T [facility] Comment:Unable to calculate, Direct Bili <0.2 ALK PHOSPHATASE 75 40 - 129 IU/L 09/20/2023 1:09 PM T [facility] ALT (SGPT) 21 10 - 50 IU/L 09/20/2023 1:09 PM [facility] AST (SGOT) 26 10 - 50 IU/L 09/20/2023 1:09 PM [facility] Blood BLOOD SPECIMEN / Unknown Butterfly / Unknown 09/20/2023 12:23 PM CDT 09/20/2023 12:31 PM CDT Ofelia Bustamante NP CHEMISTRY [facility] [address] [place] [address] * (ABNORMAL) Basic Metabolic Panel (09/20/2023 12:23 PM CDT) SODIUM 141 136 - 145 mmol/L 09/20/2023 1:09 PM T [facility] POTASSIUM 4.5 3.5 - 5.1 mmol/L 09/20/2023 1:09 PM [facility] CHLORIDE 104 98 - 107 mmol/L 09/20/2023 1:09 PM [facility] CO2,TOTAL 26 22 - 29 mmol/L 09/20/2023 1:09 PM [facility] ANION GAP 11 5 - 18 09/20/2023 1:09 PM [facility] GLUCOSE 120(H) 70 - 99 mg/dL 09/20/2023 1:09 PM [facility] CALCIUM 9.3 8.8 - 10.2 mg/dL 09/20/2023 1:09 PM CDT [facility] BUN 28(H) 8 - 23 mg/dL 09/20/2023 1:09 PM CDT [facility] CREATININE 1.45(H) 0.70 - 1.20 mg/dL 09/20/2023 1:09 PM CDT [facility] BUN/CREAT RATIO 19 10 - 20 1:09 PM T [facility] eGFR 50(L) >90 mL/min/1.7 3m2 09/20/2023 1:09 PM CDT [facility] Comment:As of 2021, eG FR is calculated by the CKD-EPI creatinine equation without race adjustment. ??eGFR can be influenced by muscle mass, exercise, and diet. ??The reported eGFR is an estimation only and is only applicable if the renal function is stable. Blood BLOOD SPECIMEN / Unknown Butterfly / Unknown 09/20/2023 12:23 PM CDT 09/20/2023 12:31 PM CDT Ofelia Bustamante NP CHEMISTRY Performing Organization Address [facility]/ZIP Co de Phone Number [facility] [address] [place] [address] * EKG 12 Lead (09/20/2023 12:20 PM CDT) Interpretation Atrial fibrillation with a competing junctional pacemaker Abnormal ECG When compared with ECG of 19-JUL-2023 17:39, No significant change was found [facility] NOW Ventricular Rate 77 BPM BEYOND NOW Atrial Rate 70 BPM BEYOND NOW P-R Interval ms BEYOND NOW QRS Duration 80 ms BEYOND NOW QT 408 ms BEYOND NOW QTc 461 ms BEYOND NOW P [place] degrees BEYOND NOW R [place] 54 degrees BEYOND NOW T [place] 43 degrees BEYOND NOW 09/20/2023 12:2 0 PM CDT 09/20/2023 12:41 PM CDT Ofelia Bustamante SERVICE CLEANER EKG ORD Performing Organization Address [facility] Co de Phone Number [facility] NOW [place], [place] * ANTI HCV [79538.2] (03/26/2019 4:11 PM CDT) HEPATITIS C ANTIBODY Non-React que Non-React que 03/26/2019 8:04 PM CDT [facility] Comment:Antibodies to HCV no t detected; does not exclude the possibility of exposure to HCV. Blood BLOOD SPECIMEN / Unknown Butterfly / Unknown 03/26/2019 4:11 PM CDT 03/26/2019 4:11 PM CDT Latanya Adelaidarajesh Babbm DO SEND OUTS [facility] [address] [place] [address], from Last 3 Months or Most Recently Relevant to Health Maintenance Advance Directives Documents on File Type Date Recorded Patient Energy Consultant Expl anation POLST 11/07/2020 9:37 AM Power of Chain Sales Consultant 07/19/2019 9:47 AM * DNR (Latest Code Status on File) Date Activated Date Inactivated Comments 09/20/2023 5:06 PM 09/21/2023 3:37 PM Question Answer Comments Code Status Discussion: Unable to Assess Preferences, Provider to review later * DNR Date Activated Date Inactivated Comments 07/20/2023 12:02 AM 07/21/2023 3:01 PM Question Answer Comments Code Status Discussion: Reviewed Preferences * Full Code Date Activated Date Inactivated Comments 07/19/2023 11:26 PM 07/20/2023 12:01 AM Question Answer Comments Code Status Discussion: Reviewed Preferences * Full Code Date Activated Date Inactivated Comments 02/12/2022 9:05 PM 02/16/2022 1:32 PM Question Answer Comments Code Status Discussion: Reviewed Preferences * Full Code Date Activated Date Inactivated Comments 07/06/2021 10:06 PM 07/09/2021 1:26 PM Question Answer Comments Code Status Discussion: Reviewed Preferences Care Teams Atomic Welder Relationship Specialty Start Date End Date Joann Oconnell NP [address] [place] [address] [place] [address] PCP - General Nurse Practitioner 01/18/22 Trevon Durán V [address] [facility] [place] Occupational Health Physician 05/15/12 Amador Deluca DPM [address] [place] [address] PODIATRY Podiatry 03/06/14 Fidel Melo MD [address] [address] Nephrology Nephrology 03/06/14 Steven Barnhart MD [address] [address] General Surgery Surgery - General 03/06/14 Allen Vergara MD [address] [address] Urology Surgery - Urology 03/06/14 Juan Bañuelos MD [address] [place] [address] Neurology 02/14/17
--- OUTSIDE RECORDS SUMMARY | 2023-11-08 11:48 | XMS_ITS | Referral Summary ---
Author Organization [facility] Address [address] [place] [address] Care Team Providers Care Utilization Specialist Name Role Phone No Ref-Primary, Physician Primary Care Provider Allergies No known active allergies Social History Tobacco Use Types Packs/Day Years Used Date Smoking Tobacco: Never Assessed Sex and Gender Information Value Date Recorded Sex Assigned at Not on file Gender Identity Not on file Sexual Orientation Not on file Last Filed Vital Signs Vital Sign Reading Time Taken Comments Blood Pressure 133/96 11/30/2019 6:23 PM CDT Pulse 78 11/30/2019 4:50 PM CDT Temperature 36.7 ??C (98.1 ??F) 11/30/2019 3:04 PM CD T Respiratory Rate 17 11/30/2019 6:23 PM CDT Oxygen Saturation 98% 11/30/2019 6:32 PM CDT Inhaled Oxygen Concentration - - Weight 129.3 kg (285 lb) 11/30/2019 5:12 PM CDT Height - - Body Mass Index - - Plan of Treatment Not on file Care Teams Utilization Specialist Relationship Specialty Start Date End Date No Ref-Primary, Physician PCP - General 11/30/19
--- OUTSIDE RECORDS SUMMARY | 2023-11-08 11:48 | XMS_ITS | Clinical Summary ---
Author Organization [facility] Address [address] [place] [address] Care Team Providers Care Sustainability Purchasing Agent Name Role Phone No Ref-Primary, Physician Primary [...] of Treatment Not on file Care Teams Sustainability Purchasing Agent Relationship Specialty Start Date End Date No Ref-Primary, Physician PCP - General 11/30/19
--- OUTSIDE RECORDS SUMMARY | 2023-11-08 11:49 | XMS_ITS | Continuity of Care Document ---
Author Organization [facility] Address [address] [place] [address] Phone Care Team Providers Care Salt Washer [employer]ing [employer] Name Role Phone Rickey Carreno Unavailable Unavailable [...] ient Visit,Est, Mod [facility], [address], [place], [id number], [place] tel:[phone] [facility] [place] Other spondylosis , lumbar region Meek Lang. [facility] [place], [address], [place], [id number], [place]. tel:[phone] Referring Provider: Neymar Michaels, [facility] [address], [place], [address]. tel:[phone] Office/Outpat ient Visit,Est, Mod [facility], [address], [facility] [place], [id number], [place] tel:[phone] [facility] Other spondylosis , lumbar region Meek Lang. [facility] [place], [address], [place], [place], [id number], [place]. tel:[phone] Referring Provider: Neymar Michaels, [facility] [address], [place], [address]. tel:[phone] Office/Outpat ient Visit,New, Mod [facility], [address], [place], [place], [id number], [place] tel:[phone] [facility] Other spondylosis , lumbar region Meek Lang. [facility], [address], [place], [place], [id number], [place]. tel:[phone] Referring Provider: Neymar Michaels, [facility] [address], [place], [address]. tel:[phone] [facility], [address], [facility] [place], [id number], [place] tel:[phone] [facility] Low back pain Eddie Anderson. [facility], [address], [facility] [place], [address], [place]. tel:[phone] Family History Family Member Type Diagnosis Age At Onset No Information Payers Payer name Insurance type Covered alliance party ID Sal king(s) Medicare MB [id number] [facility] Federal [id number] Social History Type Description Quantity Date Captured [...]
== END 2023-11-08 13:27 | disposition home or self-care (01) ==
PROVIDERS: Emergency Provider Family Medicine
DX: M54.50 Low back pain, unspecified (principal); M53.3 Sacrococcygeal disorders, not elsewhere classified
CPT/HCPCS: 99284; A9270